=== PATIENT | female | born 1980 | race Caucasian/White ===

== ENCOUNTER 2016-11-16 13:49 | Emergency (ER) | payer OTHER ==
[2016-11-16 13:54] VITALS: BP 110/67
--- NOTE | 2016-11-16 13:57 | ER Document Report ---
ED Medical Screen (RME) - General Stated Complaint: BACK PAIN Mode of Arrival: Ambulatory Information source: Patient Notes: Patient presents to the emergency department with complaints of severe low back pain for the past week with no injury. Reports pain with touch. She also reports she is forward her abdomen hurts. Patient is last menstrual period in September. . She denies vaginal bleeding. She denies pain with void. I have greeted and performed a rapid initial assessment of this patient. A comprehensive ED assessment and evaluation of the patient, analysis of test results and completion of the medical decision making process will be conducted by additional ED providers. TRAVEL OUTSIDE OF THE [place] IN LAST 30 DAYS: No - Related Data Allergies/Adverse Reactions: No Known Allergies Allergy (Verified 11/16/16 13:54) Past Medical History - Immunizations Hx Diphtheria, Pertussis, Tetanus Vaccination: Yes
[2016-11-16 14:21] LABS: ABSOLUTE EOSINOPHILS # (AUTO) 0.1 10^3/uL (0.0-0.6); ABSOLUTE LYMPHOCYTES (AUTO) 2.2 10^3/uL (0.5-4.7); ABSOLUTE MONOCYTES (AUTO) 0.6 10^3/uL (0.1-1.4); ABSOLUTE NEUT (AUTO) 5.2 10^3/uL (1.7-8.2); BASOPHILS % (AUTO) 0.4 % (0-2); EOSINOPHILS % (AUTO) 1.6 % (0-6); HEMATOCRIT 45.4 % (36.0-47.0); HEMOGLOBIN 14.2 g/dL (12.0-15.5); HGB HCT DIFFERENCE -2.8; LYMPHOCYTES % (AUTO) 26.8 % (13-45); MEAN CORPUSCULAR HEMOGLOBIN 28.4 pg (27.0-33.4); MEAN CORPUSCULAR HGB CONC 31.3 g/dL (32.0-36.0); MEAN CORPUSCULAR VOLUME 91 fl (80-97); MONOCYTES % (AUTO) 7.5 % (3-13); RED CELL DISTRIBUTION WIDTH 12.7 % (11.5-14.0); SEGMENTED NEUTROPHILS % (AUTO) 63.7 % (42-78); WHITE BLOOD COUNT 8.1 10^3/uL (4.0-10.5)
[2016-11-16 14:25] LABS: APPEARANCE,URINE SLIGHTLY-CLOUDY; BILIRUBIN,URINE NEGATIVE (NEGATIVE); GLUCOSE, URINE NEGATIVE (NEGATIVE); KETONES,URINE NEGATIVE (NEGATIVE); LEUKOCYTE ESTERASE,URINE NEGATIVE (NEGATIVE); NITRITE,URINE NEGATIVE (NEGATIVE); PROTEIN,URINE NEGATIVE (NEGATIVE); URINE SPECIFIC GRAVITY 1.019; UROBILINOGEN,URINE NEGATIVE mg/dL (<2.0)
[2016-11-16 14:42] LABS: ALANINE AMINOTRANSFERASE 33 U/L (9-52); ALBUMIN 4.3 g/dL (3.5-5.0); ALKALINE PHOSPHATASE 88 U/L (38-126); ANION GAP 10 (5-19); ASPARTATE AMINO TRANSFERASE 22 U/L (14-36); BILIRUBIN,TOTAL 0.4 mg/dL (0.2-1.3); BLOOD UREA NITROGEN 12 mg/dL (7-20); CALCIUM 9.7 mg/dL (8.4-10.2); CARBON DIOXIDE 27 mmol/L (22-30); CHLORIDE 103 mmol/L (98-107); CREATININE RESULT 0.89 mg/dL (0.52-1.25); GLUCOSE 79 mg/dL (75-110); POTASSIUM 3.9 mmol/L (3.6-5.0); SODIUM 140.2 mmol/L (137-145)
--- NOTE | 2016-11-16 15:27 | ER Document Report ---
ED Neck/Back Problem - General Chief Complaint: Back Pain Stated Complaint: BACK PAIN Mode of Arrival: Ambulatory Information source: Patient Notes: 36-year-old female who presents today with 5 days of lower back "pain". She denies any recent trauma. 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 Patient states she is a 001 at around 5 weeks by last menstrual period. She denies to me any abdominal or pelvic pain on repeat questioning. She denies any dysuria or vaginal bleeding. She states the pain radiates down her left lateral thigh. She denies any foot drop or weakness. No history of back pain previously. Patient denies any and all trauma. She denies any nausea, vomiting, or fevers. Patient ambulated down the hallway to her room TRAVEL OUTSIDE OF THE [place] IN LAST 30 DAYS: No - HPI Onset: Other - See above Where: Outdoors Onset: Gradual Timing: Waxing and waning Quality of pain: Achy Severity: Mild Pain Level: 2 Recent injury: No Associated symptoms: Other - See above Exacerbated by: Movement of trunk Relieved by: Remaining still Similar symptoms previously: No Recently seen / treated by doctor: Yes - Related Data Allergies/Adverse Reactions: No Known Allergies Allergy (Verified 11/16/16 13:54) Past Medical History - General Information source: Patient - Social History Smoking Status: Never Smoker Chew tobacco use (# tins/day): No Frequency of alcohol use: None Drug Abuse: None Family History: Reviewed & Not Pertinent Patient has suicidal ideation: No Patient has homicidal ideation: No Renal/ Medical History: Denies: Hx Peritoneal Dialysis - Immunizations Hx Diphtheria, Pertussis, Tetanus Vaccination: Yes Physical Exam - Vital signs Vitals: Temp Pulse Resp BP Pulse Ox 97.8 F 84 16 110/67 97 11/16/16 13:53 11/16/16 13:53 11/16/16 13:53 11/16/16 13:53 11/16/16 13:53 Notes: Reviewed vital signs and nursing note as charted by RN. CONSTITUTIONAL: Alert and oriented and responds appropriately to questions. Well -appearing; well-nourished ABD/GI: Normal bowel sounds; non-distended; soft, non-tender to deep palpation of all 4 quadrants of the abdomen BACK: The back appears normal and is point tender to the left paraspinal muscular region without any obvious swelling or erythema. There is no midline tenderness or step-offs. EXT: Normal ROM in all joints; non-tender to palpation; no cyanosis SKIN: Normal color for age and race; warm; dry; good turgor; capillary refill < 2 seconds; no acute lesions noted NEURO: Moves all extremities equally; ambulated without difficulty. 2+ patellar reflexes bilaterally. No foot drop with 5 out of 5 bilateral plantar and flexor extension. PSYCH: The patient's mood and manner are appropriate. Grooming and personal hygiene are appropriate. 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 Patient does have a primary care physician. I have instructed the patient to take Tylenol and have provided strict return precautions that the patient states she understands. - Vital Signs Vital signs: Temp Pulse Resp BP Pulse Ox 97.8 F 84 16 110/67 97 11/16/16 13:53 11/16/16 13:53 11/16/16 13:53 11/16/16 13:53 11/16/16 13:53 - Laboratory Result Diagrams: 11/16/16 14:02 11/16/16 14:02 Laboratory results interpreted by me: 11/16/16 11/16/16 14:02 14:02 MCHC 31.3 L Beta HCG, Quant 4625.60 H Discharge - Discharge Clinical Impression: Low back pain with left-sided sciatica Qualifiers: Chronicity: acute Back pain laterality: left Qualified Code(s): M54.42 - Lumbago with sciatica, left side Condition: Good Disposition: HOME, SELF-CARE Additional Instructions: Come back immediately for any increased pain, fevers, pain with urination, incontinence of urine or stool, weakness of the leg, increased numbness, vaginal bleeding, abdominal pain, or any other acute problems. Please follow- up with your primary care physician as well as orthopedics as we have discussed. I would take only Tylenol as needed for the pain as we have discussed. Referrals: BETH AN MD [ACTIVE STAFF] - Follow up as needed
== END 2016-11-16 16:24 | disposition home or self-care (01) ==
LOC: ER 13:49
DX: O26.91 Pregnancy related conditions, unspecified, first trimester (principal); M54.42 Lumbago with sciatica, left side; Z3A.01 Less than 8 weeks gestation of pregnancy
CPT/HCPCS: 36415; 80053; 81001; 84702; 85025; 99283

== ENCOUNTER → 2016-11-18 | Outpatient (CLI) | payer OTHER | LOC: LAB 13:50 | PROVIDERS: ATTEND Advanced Practice Midwife | DX: Z32.01 Encounter for pregnancy test, result positive (principal) | CPT/HCPCS: 36415; 84702; 84703 ==